=== PATIENT | female | born 1930 | race African-American/Black ===

== ENCOUNTER 2016-05-26 11:03 | Emergency (ER) | payer OTHER ==
[~2016-05-26] VITALS: Ht 165.1 cm; Wt 81.7 kg
[~2016-05-26 11:03] MED LIST: CARDURA2 MG PO; HYDROCODON-ACE1 EAC7 PO; LISINOPRIL10 MG; METFORMIN; METFORMIN HCL500 MG PO; NAPROSYN500 MG PO
[2016-05-26 11:26] LABS: URINE BILIRUBIN NEGATIVE (Negative); URINE BLOOD TRACE (Negative); URINE COLOR YELLOW; URINE GLUCOSE-RANDOM* NEGATIVE (Negative); URINE KETONES NEGATIVE (Negative); URINE NITRITE NEGATIVE (Negative); URINE PROTEIN (DIPSTICK) NEGATIVE (Negative); URINE SPECIFIC GRAVITY 1.015 (1.003-1.035)
[2016-05-26 12:14] LABS: HEMATOCRIT 38.5 % (37.0-47.0); HEMOGLOBIN 12.7 gm/dL (12.0-15.0); MANUAL DIFF YES; MCH 24.3 pg (26.0-34.0); MCV 73.7 fL (80.0-100.0); PLATELET COUNT 161 thou/uL (150-400); RBC 5.23 mil/uL (4.20-5.00); RDW 14.9 % (10.5-14.5); WBC 6.7 thou/uL (4.0-11.0)
[2016-05-26 12:29] LABS: CALCIUM 8.6 mg/dL (8.5-10.1); POTASSIUM 3.8 mmol/L (3.5-5.1)
[2016-05-26 12:34] LABS: ALBUMIN 3.3 g/dL (3.4-5.0); TOTAL BILIRUBIN 0.4 mg/dL (<0.1-1.0); TOTAL PROTEIN 6.8 g/dL (6.4-8.2)
[2016-05-26 12:48] LABS: ABSOLUTE NEUTROPHILS 5.2 thou/uL (1.4-8.2); ANISOCYTOSIS 1+; MICROCYTES 1+; OVALOCYTES 1+; TOTAL CELL COUNT 100
[2016-05-26] MEDS ORDERED: MIRALAX17 GM PO (15:42)
== END 2016-05-26 16:05 | disposition home or self-care (01) ==
LOC: ER 11:03
PROVIDERS: Physician Assistant
DX: K59.00 Constipation, unspecified (principal); Z88.0 Allergy status to penicillin; E11.9 Type 2 diabetes mellitus without complications; I10 Essential (primary) hypertension; Z90.89 Acquired absence of other organs

== ENCOUNTER 2019-11-28 18:26 | Emergency (ER) | payer OTHER ==
[~2019-11-28] VITALS: Ht 165.1 cm; Wt 85.7 kg
[~2019-11-28 18:26] MED LIST changes: +MIRALAX17 GM PO
[2019-11-28] MEDS ORDERED: LIPITOR 40 MG T40 M1 PO (18:43)
[2019-11-28] MEDS ORDERED: LOPRESSOR50 PO (18:43)
[2019-11-28] MEDS ORDERED: NORVASC5 MG PO (18:43)
[2019-11-28 19:14] LABS: ABSOLUTE NEUTROPHILS 3.3 thou/uL (1.4-8.2); EOSINOPHILS 6.8 % (0.0-3.0); HEMATOCRIT 39.9 % (37.0-47.0); HEMOGLOBIN 12.8 gm/dL (12.0-15.0); LYMPHOCYTES 25.7 % (24.0-44.0); MCH 24.8 pg (26.0-34.0); MCHC 32.1 g/dL (28.0-37.0); MCV 77.2 fL (80.0-100.0); MONOCYTES 7.8 % (1.0-8.0); PLATELET COUNT 160 thou/uL (150-400); POLYS 58.7 % (36.0-66.0); RBC 5.17 mil/uL (4.20-5.00); RDW 16.1 % (10.5-14.5); WBC 5.6 thou/uL (4.0-11.0)
[2019-11-28 19:33] LABS: ANION GAP 9 mmol/L (7-16); BUN 18 mg/dL (7-18); CALCIUM 8.9 mg/dL (8.5-10.1); CHLORIDE 105 mmol/L (98-107); CO2 26 mmol/L (21-32); CREATININE 0.9 mg/dL (0.6-1.0); GLUCOSE 160 mg/dL (74-106); POTASSIUM 3.8 mmol/L (3.5-5.1); SODIUM 140 mmol/L (136-145)
[2019-11-28 19:43] LABS: ALBUMIN 3.3 g/dL (3.4-5.0); LIPASE 244 U/L (73-393); SGOT 47 U/L (15-37); SGPT 52 U/L (30-65); TOTAL BILIRUBIN 0.4 mg/dL (0.2-1.0); TOTAL PROTEIN 7.3 g/dL (6.4-8.2); TROPONIN-I <0.06 ng/mL (<0.06)
[2019-11-28 20:30] LABS: URINE BILIRUBIN NEGATIVE (Negative); URINE BLOOD NEGATIVE (Negative); URINE CLARITY CLEAR; URINE COLOR YELLOW; URINE GLUCOSE-RANDOM* NEGATIVE (Negative); URINE KETONES NEGATIVE (Negative); URINE LEUKOCYTES-REFLEX TRACE (Negative); URINE NITRITE-REFLEX NEGATIVE (Negative); URINE PROTEIN (DIPSTICK) NEGATIVE (Negative); URINE SPECIFIC GRAVITY >= 1.030 (1.005-1.035)
[2019-11-28] MEDS ORDERED: ZOFRAN ODT4 MG PO (20:36)
[2019-11-28 21:00] VITALS: BP 122/74
--- NOTE | 2019-11-29 11:20 | EKG ---
[facility] [place] [address] ELECTROCARDIOGRAM REPORT Name: VALENTIN FIELD Room #: DEP [facility]#: [id number] Admission: 11/28/19 Attend Phys: Discharge: 11/28/19 Date of : 32 Report #: [id number] THIS REPORT FOR: cc: Elias Arriaza MD, Michael D. MD Santiago, Patrick MD [facility] ~ THIS REPORT FOR: //name// [facility] ED Test Date: 2019-11-28 Test Time: 18:56:17 Pat Name: VALENTIN FIELD Department: Room: Gender: F [employer]: [facility] : 1930 Requested By: Wesley Mi Order Number: [id number] MD: Juan Pablo Phoenix Measurements Intervals [place] Rate: 76 P: 46 CO: 147 QRS: -29 QRSD: 103 T: 44 QT: 381 QTc: 429 Interpretive Statements Sinus rhythm Borderline left axis deviation Borderline T wave abnormalities Compared to ECG 01/23/2015 18:47:14 T-wave abnormality now present Electronically Signed On 11-29-2019 11:20:33 CDT by Juan Pablo Phoenix [email or web address] <ELECTRONICALLY SIGNED> By: Juan Pablo Phoenix MD, FACC 11/29/19 1120 185 185 Juan Pablo Phoenix MD, FAC /EPI
== END 2019-11-28 21:11 | disposition home or self-care (01) ==
LOC: ER 18:26
PROVIDERS: Emergency Medicine
DX: R11.0 Nausea (principal); I10 Essential (primary) hypertension; E11.9 Type 2 diabetes mellitus without complications; Z79.899 Other long term (current) drug therapy; Z88.0 Allergy status to penicillin